=== PATIENT | female | born 1955 | race Hispanic/Latino ===

== ENCOUNTER 2017-06-26 09:14 | Emergency (ER) | payer OTHER ==
[2017-06-26 09:15] VITALS: BMI 24.3
[2017-06-26 09:51] VITALS: TEMP 98.8; O2SAT 99
--- NOTE | 2017-06-26 10:00 | ED PDOC ---
Arrival/HPI - General Chief Complaint: Abdominal Pain Time Seen by Provider: 06/26/17 09:29 Historian: Patient - History of Present Illness Narrative History of Present Illness (Text): 06/26/17 62 yo female w/PMHx of HTN, hypercholesterolemia, hx of constipation, come in for evaluation of gradual worsening of lower back pain for past month. Pt reports, pain is localized with intermittent radiation to lower abdominal wall. Pt describes pain as constant, dull, "aching and burning", worse with movement. Pt admits, previous hx of lower back pain " not as bad". Otherwise, pt denies known trauma or injury, fever, chills, headache, dizziness, neck pain, CP, SOB, dyspnea, diaphoresis, palpitation, V/D, denies melena, hematoscehzia, denies weakness, sensory or vascular deficits to B/L UEs and LEs. Ambulate to ED for evaluation, appears in pain. Past Medical History - Provider Review Nursing Documentation Reviewed: Yes - Travel History Have you recently traveled outside [place] w/in the past 3 mons?: No - Tetanus Immunization Tetanus Immunization: Unknown - Cardiac Hx Cardiac Disorders: Yes Hx Hypertension: Yes Hx Pacemaker: No - Pulmonary Hx Respiratory Disorders: No - Neurological Hx Neurological Disorder: No Hx Paralysis: No - HEENT Hx HEENT Disorder: No - Renal Hx Renal Disorder: No - Endocrine/Metabolic Hx Endocrine Disorders: No - Hematological/Oncological Hx Blood Disorders: No Hx Blood Transfusions: No - Integumentary Hx Dermatological Disorder: No - Musculoskeletal/Rheumatological Hx Musculoskeletal Disorders: Yes - Gastrointestinal Hx Gastrointestinal Disorders: No - Genitourinary/Gynecological Hx Genitourinary Disorders: No - Psychiatric Hx Psychophysiologic Disorder: No Hx Emotional Abuse: No Hx Physical Abuse: No Hx Substance Use: No - Anesthesia Hx Anesthesia Reactions: No Hx Malignant Hyperthermia: No - Suicidal Assessment Feels Threatened In Home Enviroment: No Family/Social History - Physician Review Nursing Documentation Reviewed: Yes Family/Social History: No Known Family HX Smoking Status: Heavy Smoker > 10 Cigarettes Daily Hx Alcohol Use: No Hx Substance Use: No Allergies/Home Meds Allergies/Adverse Reactions: Allergies No Known Allergies Allergy (Verified 06/26/17 09:22) Home Medications: Home Meds Medication Instructions Recorded Confirmed Lisinopril/Hydrochlorothiazide 1 tab PO DAILY 03/29/16 06/26/17 [Lisinopril-Hydrochlorothiazide 25 mg-20 mg] Simvastatin 20 mg PO DAILY 03/29/16 06/26/17 Review of Systems - Review of Systems Constitutional: Normal Eyes: Normal ENT: Normal Respiratory: Normal Cardiovascular: Normal Gastrointestinal: Abdominal Pain, Constipation, Nausea. absent: Stool Changes, Diarrhea, Vomiting, Hematochezia, Hematemesis, Food Intolerance Genitourinary Female: Normal Musculoskeletal: Back Pain Skin: Normal Neurological: Normal Endocrine: Normal Hemo/Lymphatic: Normal Psychiatric: Normal Physical Exam Vital Signs Reviewed: Yes Vital Signs Temp Pulse Resp BP Pulse Ox 06/26/17 13:38 78 18 134/78 99 06/26/17 12:24 81 18 136/89 99 06/26/17 11:15 89 18 138/91 H 99 06/26/17 09:29 98.8 F 94 H 16 139/100 H 99 Temperature: Afebrile Blood Pressure: Normal Pulse: Regular Respiratory Rate: Normal Appearance: Positive for: Well-Appearing, Non-Toxic, Comfortable Pain Distress: Moderate Mental Status: Positive for: Alert and Oriented X 3 - Systems Exam Conjunctiva: Present: Normal Mouth: Present: Moist Mucous Membranes, Normal Lips Nose (Internal): Present: Normal Inspection Neck: Present: Trachea Midline. No: JVD, Bruit Respiratory/Chest: Present: Clear to Auscultation, Good Air Exchange. No: Respiratory Distress, Accessory Muscle Use Cardiovascular: Present: Regular Rate and Rhythm, Normal S1, S2. No: Murmurs Abdomen: Present: Tenderness (diffuse mild lower abdominal), Normal Bowel Sounds. No: Distention, Peritoneal Signs, Rebound, Guarding Back: No: CVA Tenderness Upper Extremity: No: Cyanosis, Edema Lower Extremity: Present: NORMAL PULSES, Normal ROM, Neurovascularly Intact. No : Edema, CALF TENDERNESS, Swelling, Deformity Neurological: Present: GCS=15, Speech Normal, Motor Func Grossly Intact, Normal Sensory Function, Normal Cerebellar Funct, Norm Deep Tendon Reflexes, Gait Normal Skin: Present: Warm, Dry, Normal Color. No: Rashes Psychiatric: Present: Alert, Oriented x 3, Normal Insight, Normal Concentration Medical Decision Making ED Course and Treatment: 06/26/17 Pt was OBS in ED for 3.5 hrs. Delay due to delay in imaging reading. On re-evaluation, pt reports " feeling better". Afebrile, hemodynamicaly stable. non-toxic. Ambulatory in ED with stable gait. Neck: Supple, (-) JVD, no midline tenderness. Lungs: CTA B/L, BS equal B/L CVS: (+)S1S2, reg. Abd: Benign, (-) guarding, (-) rebound, (-) localized tenderness. Back: (-) CVA Tenderness. Neurologicaly intact. Diagnostics and imaging review and appears without acute abnormalities. Results review and discussed with patient. Pt has clinical findings c/w acute lower back pain, diffuse lower abdominal pain , nos. likely musculoskeletal. Pt admits, hx of constipation " for years". Pt ref. to F/u with PMD and GI in 2-3 days for re-eavl. return to ED if any worsening or new changes. - Lab Interpretations Lab Results: 06/26/17 10:00 06/26/17 10:00 Lab Results 06/26/17 10:00: Sodium 139, Potassium 3.8, Chloride 96 L, Carbon Dioxide 30, Anion Gap 17, BUN 16, Creatinine 0.9, Est GFR ( Amer) > 60, Est GFR (Non- Af Amer) > 60, Random Glucose 114 H, Calcium 10.3, Total Bilirubin 0.6, AST 30, ALT 37, Alkaline Phosphatase 61, Total Protein 7.3, Albumin 4.7, Globulin 2.6, Albumin/Globulin Ratio 1.8 06/26/17 10:00: Urine Color Yellow, Urine Appearance Clear, Urine pH 7.0, Ur Specific [place] 1.020, Urine Protein 100 H, Urine Glucose (UA) Negative, Urine Ketones Negative, Urine Blood Small H, Urine Nitrate Negative, Urine Bilirubin Negative, Urine Urobilinogen 0.2, Ur Leukocyte Esterase Negative, Urine RBC 2 - 5, Urine WBC 0 - 2, Ur Epithelial Cells Many, Amorphous Sediment Few 06/26/17 10:00: WBC 10.9, RBC 4.73, Hgb 15.3, Hct 44.0, MCV 93.0, MCH 32.3, MCHC 34.8, RDW 12.5, Plt Count 223, MPV 8.8, Gran % 76.1 H, Lymph % (Auto) 18.0 L, [place] % (Auto) 5.0, Eos % (Auto) 0.6 L, Baso % (Auto) 0.3, Gran # 8.30 H, Lymph # 2.0, [place] # 0.6, Eos # 0.1, Baso # 0.03 Interpretation: No clinic. lab abnormalty - RAD Interpretation Narrative RAD Interpretations (Text): 06/26/17 13:22 Accession No. : [id number] Patient Name / ID : LANA EDEN / [id number] Exam Date : 06/26/2017 11:34:17 ( Approved ) Study Comment : Sex / Age : F / 62Y Creator : Mary Briggs MD Dictator : Mary Briggs MD Auto Engine Mechanic : Marketing Database Analyst : Mary Briggs MD Approver2 : Report Date : 06/26/2017 13:04:47 My Comment : PROCEDURE: CT Abdomen and Pelvis with contrast HISTORY: diffuse lower abdominal pain, constipation COMPARISON: None. TECHNIQUE: CT scan of the abdomen and pelvis was performed after intravenous administration of contrast. Oral contrast was not administered. Coronal and sagittal reformatted images were obtained. Contrast dose: 100 mL Omnipaque 350 Radiation dose: Total exam DLP = 482.01 MGy-cm. This CT exam was performed using one or more of the following dose reduction techniques: Automated exposure control, adjustment of the mA and/or kV according to patient size, and/or use of iterative reconstruction technique. FINDINGS: LOWER THORAX: There is linear atelectasis/scarring in the right lateral lung base. Otherwise, the visualized lungs are clear. LIVER: The liver is normal in size and there is homogeneous enhancement. No gross lesion or ductal dilatation. GALLBLADDER AND BILE DUCTS: No calcified gallstones, wall thickening or pericholecystic fluid. PANCREAS: The pancreas is normal in size and there is homogeneous enhancement. No gross lesion or ductal dilatation. SPLEEN: The spleen is normal in size without focal lesion ADRENALS: Both adrenal glands are normal in size without discrete nodule. KIDNEYS AND URETERS: Both kidneys are normal in size without hydronephrosis or focal mass. VASCULATURE: No aortic aneurysm. There are atherosclerotic aortoiliac calcifications. BOWEL: The small bowel loops are normal in caliber. There is moderate amount of stool in the ascending and transverse colon. The descending colon is decompressed. There is mild left colonic diverticulosis without CT evidence for acute diverticulitis. APPENDIX: Normal appendix. PERITONEUM: No free fluid. No free air. LYMPH NODES: No enlarged lymph nodes. BLADDER: Unremarkable. REPRODUCTIVE: The uterus is normal in size. BONES: No acute fracture. There is diffuse bone demineralization. OTHER FINDINGS: There is a small sliding hiatal hernia. IMPRESSION: No acute abdominal or pelvic abnormality. Constipation. Mild left colonic diverticulosis without CT evidence for acute diverticulitis. No evidence of bowel obstruction. Small sliding hiatal hernia. Radiology Orders: 06/26/17 09:59 ABD & PELVIS IV CONTRAST ONLY [CT] Stat LS SPINE AP/LAT [RAD] Stat - Medication Orders Current Medication Orders: Discontinued Medications Diazepam (Valium) 5 mg PO STAT STA PRN Reason: Protocol Stop: 06/26/17 09:58 Last Admin: 06/26/17 10:15 Dose: 5 mg Gabapentin (Neurontin) 300 mg PO STAT STA PRN Reason: Protocol Stop: 06/26/17 09:58 Last Admin: 06/26/17 10:20 Dose: 300 mg Iohexol (Omnipaque 350 100 Ml) Confirm Administered Dose 350 mg .ROUTE .STK-MED ONE Stop: 06/26/17 11:27 Ketorolac Tromethamine (Toradol) 30 mg IVP STAT STA Stop: 06/26/17 09:58 Last Admin: 06/26/17 10:15 Dose: 30 mg MAR Pain Assessment Document 06/26/17 10:15 UNIQUE (Rec: 06/26/17 10:15 UNIQUE [id number]) Pain Reassessment Is this a pain reassessment? Yes Presence of Pain Presence of Pain Yes Location Upper or Lower Lower Pain Location Body Site Abdomen Description Description Pressure IVP Administration Document 06/26/17 10:15 UNIQUE (Rec: 06/26/17 10:15 UNIQUE [id number]) Charges for Administration # of IVP Administrations 1 Tramadol HCl (Ultram) 50 mg PO STAT STA Stop: 06/26/17 11:17 Last Admin: 06/26/17 11:29 Dose: 50 mg MAR Pain Assessment Document 06/26/17 11:29 UNIQUE (Rec: 06/26/17 11:31 UNIQUE [id number]) Pain Reassessment Is this a pain reassessment? Yes Pain Scale Used Pain Scale Used Numeric Location Upper or Lower Lower Pain Location Body Site Abdomen Description Intensity of Pain at present 9 Disposition/Present on Arrival - Present on Arrival Any Indicators Present on Arrival: No History of DVT/PE: No History of Uncontrolled Diabetes: No Urinary Catheter: No History of Decub. Ulcer: No History Surgical Site Infection Following: None - Disposition Have Diagnosis and Disposition been Completed?: Yes Diagnosis: Acute back pain Disposition: HOME/ ROUTINE Disposition Time: 13:10 Patient Plan: Discharge Condition: STABLE Discharge Instructions (ExitCare): Acute Low Back Pain (ED) Additional Instructions: Light duty, avoid prolong walking or sitting, heavy lifting, etc. Take pain medication as prescribed for pain Follow up with PMD in 2-3 days for re-evaluation and further treatment. Consider MRI of L-spine return to Ed at any time if any worsening or new changes. Prescriptions: Ibuprofen [Motrin Tab] 600 mg PO Q6 #20 tab Methocarbamol [Robaxin] 500 mg PO TID #14 tab traMADol [Ultram] 50 mg PO TID #7 tab Referrals: Bobo Rasmussen MD [Primary Care Provider] - Follow up with primary Forms: [facility] (Yoruba), WORK NOTE
[2017-06-26 10:17] LABS: BASO # 0.03 K/mm3 (0.0-2.0); BASO % 0.3 % (0.0-3.0); EOS # 0.1 (0.0-0.7); EOS % 0.6 % (1.5-5.0); GRAN # 8.3 (1.4-6.5); GRAN % 76.1 % (50.0-68.0); MEAN CORPUSCULAR HEMOGLOBIN 32.3 pg (25.0-35.0); MEAN CORPUSCULAR HGB CONC 34.8 g/dl (31.0-37.0); MEAN PLATELET VOLUME 8.8 fl (7.0-11.0); MONO # 0.6 (0.1-0.6); RED CELL DISTRIBUTION WIDTH 12.5 % (11.5-14.5); URINE APPEARANCE CLEAR (CLEAR); URINE BILIRUBIN NEGATIVE (NEGATIVE); URINE BLOOD SMALL (NEGATIVE); URINE COLOR YELLOW (YELLOW); URINE GLUCOSE (UA) NEGATIVE (NEGATIVE); URINE KETONE NEGATIVE (NEGATIVE); URINE LEUKOCYTE ESTERASE NEGATIVE Leu/uL (NEGATIVE); URINE PROTEIN 100 mg/dL (<30 mg/dL); URINE UROBILINOGEN 0.2 E.U./dL (<1 E.U./dL); WHITE BLOOD COUNT 10.9 10^3/ul (4.5-11.0)
[2017-06-26 10:26] LABS: ALB/GLOB RATIO 1.8 (1.1-1.8); ALKALINE PHOSPHATASE 61 U/L (38-126); ALT/SGPT 37 U/L (7-56); AST/SGOT 30 U/L (14-36); BILIRUBIN,TOTAL 0.6 mg/dL (0.2-1.3); BLOOD UREA NITROGEN 16 mg/dL (7-21); CALCIUM 10.3 mg/dL (8.4-10.5); CARBON DIOXIDE 30 mmol/L (21-33); CHLORIDE 96 mmol/L (98-107); GFR AFRICAN-AMERICAN > 60; GLUCOSE,RANDOM 114 mg/dL (70-110); POTASSIUM 3.8 mmol/L (3.6-5.0); SODIUM 139 mmol/L (132-148); TOTAL PROTEIN 7.3 g/dL (5.8-8.3)
[2017-06-26 10:33] LABS: URINE AMORPHOUS SEDIMENT FEW; URINE EPITHELIAL CELLS MANY /hpf (0-5); URINE WBC 0 - 2 /hpf (0-6)
[2017-06-26] MEDS ORDERED: Iohexol 350 MG/100 ML VIAL ONE (11:26)
[2017-06-26 11:36] VITALS: RESP 18
--- NOTE | 2017-06-26 13:06 | CT ---
PROCEDURE: CT Abdomen and Pelvis with contrast HISTORY: diffuse lower abdominal pain, constipation COMPARISON: None. TECHNIQUE: CT scan of the abdomen and pelvis was performed after intravenous administration of contrast. Oral contrast was not administered. Coronal and sagittal reformatted images were obtained. Contrast dose: 100 mL Omnipaque 350 Radiation dose: Total exam DLP = 482.01 MGy-cm. This CT exam was performed using one or more of the following dose reduction techniques: Automated exposure control, adjustment of the mA and/or kV according to patient size, and/or use of iterative reconstruction technique. FINDINGS: LOWER THORAX: There is linear atelectasis/scarring in the right lateral lung base. Otherwise, the visualized lungs are clear. LIVER: The liver is normal in size and there is homogeneous enhancement. No gross lesion or ductal dilatation. GALLBLADDER AND BILE DUCTS: No calcified gallstones, wall thickening or pericholecystic fluid. PANCREAS: The pancreas is normal in size and there is homogeneous enhancement. No gross lesion or ductal dilatation. SPLEEN: The spleen is normal in size without focal lesion ADRENALS: Both adrenal glands are normal in size without discrete nodule. KIDNEYS AND URETERS: Both kidneys are normal in size without hydronephrosis or focal mass. VASCULATURE: No aortic aneurysm. There are atherosclerotic aortoiliac calcifications. BOWEL: The small bowel loops are normal in caliber. There is moderate amount of stool in the ascending and transverse colon. The descending colon is decompressed. There is mild left colonic diverticulosis without CT evidence for acute diverticulitis. APPENDIX: Normal appendix. PERITONEUM: No free fluid. No free air. LYMPH NODES: No enlarged lymph nodes. BLADDER: Unremarkable. REPRODUCTIVE: The uterus is normal in size. BONES: No acute fracture. There is diffuse bone demineralization. OTHER FINDINGS: There is a small sliding hiatal hernia. IMPRESSION: No acute abdominal or pelvic abnormality. Constipation. Mild left colonic diverticulosis without CT evidence for acute diverticulitis. No evidence of bowel obstruction. Small sliding hiatal hernia.
--- NOTE | 2017-06-26 13:17 | RAD ---
PROCEDURE: Radiographs of the Lumbar Spine. HISTORY: pain COMPARISON: No prior. FINDINGS: BONES: There is normal alignment of the lumbar vertebral bodies. There is exaggerated lumbar lordosis. There is diffuse bone demineralization. No acute fracture, spondylolysis or spondylolisthesis. DISC SPACES: There is mild degenerative disc disease with anterior spurring in the upper lumbar vertebral bodies. The disc heights are maintained. OTHER FINDINGS: There are no pathologic soft tissue calcifications. Both sacroiliac joints are normal. Contrast material is identified in the renal collecting system and urinary bladder from prior intravenous injection. IMPRESSION: No acute fracture, spondylolysis or spondylolisthesis.
[2017-06-26 13:39] VITALS: BP 134/78; PULSE 78
== END 2017-06-26 13:43 | disposition home or self-care (01) ==
LOC: ED 09:14
DX: M54.5 Low back pain (principal); I10 Essential (primary) hypertension; E78.00 Pure hypercholesterolemia, unspecified
CPT/HCPCS: 72100; 74177; 80053; 81001; 85025; 96374; 99283; J1885; Q9967